=== PATIENT | male | born 1935 | race Caucasian/White ===

== ENCOUNTER → 2018-01-31 | Outpatient (CLI) | payer MEDICARE, OTHER ==
[2014-12-08 12:51] VITALS: BMI 26.9
[~2018-01-31] MED LIST: ASPI-663 PO; ASPI-715 PO; AZIT1PAC21 PO; CEPH500C24 PO; FENO67CA3 PO; FISH OIL1 CAP PO; HYDR25CA83 PO; IBUP1TAB PO; LEVO75TA73 PO; LIS10 PO; LISI-362 PO; LISI-374 PO; LOR5 PO; METXR500 PO; MULT1CAP41 PO; NAPR-1043 PO; PANT40TA65 PO; PER PO; PRED20TA6 PO; RANI-366 PO; SIMV-44 PO; STOOL SOFTNER; THYR60TA25 PO; VITA-280 PO; WARF5TAB23 PO
== END ==
LOC: LAB 14:03
PROVIDERS: ATTEND Anesthesiology
DX: Z01.812 Encounter for preprocedural laboratory examination (principal); M16.11 Unilateral primary osteoarthritis, right hip
CPT/HCPCS: 81001

== ENCOUNTER 2018-02-14 01:33 | Inpatient (IN) | payer MEDICARE, OTHER ==
[2018-02-13 14:46] LABS: INR 1.1
--- NOTE | 2018-02-13 23:19 | HISTORY AND PHYSICAL ---
DATE OF ADMISSION: February 14, 2018 IDENTIFICATION/CHIEF COMPLAINT Jama is an 82-year-old gentleman with the chief complaint of right hip pain. HISTORY OF PRESENT ILLNESS Patient has a longstanding history of hip arthritis, progressively painful and disabling, refractory to conservative care. Surgery is indicated to relieve symptoms after failure of nonoperative measures. PAST MEDICAL HISTORY * Generally excellent health. PAST SURGICAL HISTORY * Knee replacement by Dr. Kapadia. ALLERGIES He is allergic to PENICILLIN. CURRENT MEDICATIONS * Tramadol two pills every six hours as needed for pain. SOCIAL HISTORY Negative for tobacco and alcohol use. FAMILY HISTORY Notable for mother with a stroke. REVIEW OF SYSTEMS Negative. PHYSICAL EXAMINATION GENERAL: This is an elderly gentleman, appears stated age. HEENT: Normocephalic, atraumatic. NECK: Supple. LUNGS: Clear. HEART: Regular. ABDOMEN: Soft. ORTHOPEDIC: The patient's right hip is extremely stiff. It is painful at limits of flexion, rotation. Hip girdle strength is grossly normal. Skin envelope is intact. Calves nontender. Neurovascular function intact. LABORATORY DATA Radiographs demonstrate end-stage hip arthritis. ASSESSMENT * Right hip degenerative joint disease, progressively painful and debilitating, refractory to conservative care. PLAN Surgery is indicated to relieve symptoms after failure of nonoperative measures. The risks of the procedure include, but are not limited to , major medical or anesthetic complication, infection, neurovascular injury, blood transfusion, stiffness, scarring, fracture, tendon rupture, instability, implant loosening, migration, or failure, leg length discrepancy, need for additional surgery, and other unforeseen. He understands and wishes to proceed. Signed permit is placed in chart. No guarantees given or implied. [facility] SHOREL[facility]rent
[2018-02-14] VITALS (18 sets, daily range): BP systolic 100–170; BP diastolic 56–92
[~2018-02-14] VITALS: Ht 177.8 cm; Wt 77.2 kg
[~2018-02-14 01:33] MED LIST changes: +ACETAMINOPHEN 500 MG TAB PO ONE
[2018-02-14] MEDS ORDERED: ACETAMINOPHEN 500 MG TAB PO ONE (07:55)
[2018-02-14] MEDS ORDERED: ONDANSETRON 4 MG/2 ML VIAL ONE (08:11)
[2018-02-14] MEDS ORDERED: LIDOCAINE MPF 1% 5 ML VIAL ONE (08:11)
[2018-02-14] MEDS ORDERED: PROPOFOL EMUL(*) 10MG/ML 20 ML 20 ML ONE (08:11)
[2018-02-14] MEDS ORDERED: fentaNYL CITR 100 MCG/2 ML AMP ONE (08:12)
[2018-02-14] MEDS ORDERED: DEXAMETHASONE SOD 4 MG/ML VIAL ONE (08:12)
[2018-02-14] MEDS ORDERED: CLINDAMYCIN(*) 900 MG/NS 50 ML 50 ML IVPB ONE (09:15)
[2018-02-14] MEDS ORDERED: PREGABALIN 50 MG CAP PO ONE (09:15)
[2018-02-14] MEDS ORDERED: MIDAZOLAM 2 MG/2 ML VIAL IVP PRN (09:15)
[2018-02-14] MEDS ORDERED: FAMOTIDINE 20 MG TAB PO ONE (09:15)
[2018-02-14] MEDS ORDERED: LIDOCAINE/SOD BICARB 8.4% SYR ID ONE (09:15)
[2018-02-14] MEDS ORDERED: cloNIDine EPIDUR INJ 100MCG/ML 40 MCG, ROPIVACAINE 0.5% 20 ML VIAL 25 ML, EPINEPHrine H... INJ ONE (09:15)
[2018-02-14] MEDS ORDERED: PREGABALIN 25 MG CAP PO ONE (09:15)
[2018-02-14] MEDS ORDERED: CELECOXIB 200 MG CAP PO ONE (09:15)
[2018-02-14] MEDS ORDERED: NORMOSOL R SOLN(*) 1000 ML BAG 1,000 ML IV PRN ×2 (09:15→13:10)
[2018-02-14] MEDS ORDERED: TRANEXAMIC AC 1000 MG/10ML SDV 1,000 MG in DEXTROSE 5% 50 ML BAG 50 ML IV ONE (09:15)
[2018-02-14] MEDS ORDERED: NS(*) 0.9% 250 ML BAG 250 ML ONE (10:09)
[2018-02-14] MEDS ORDERED: PHENYLEPHRINE 10 MG/1 ML VIAL ONE ×2 (10:20→10:33)
[2018-02-14] MEDS ORDERED: GLYCOPYRROLATE 0.2MG/ML 1 ML INJ ONE (10:38)
[2018-02-14] MEDS ORDERED: DIAZEPAM 5 MG TAB PO PRN (13:10)
[2018-02-14] MEDS ORDERED: BISACODYL 10 MG SUPP PR PRN (13:10)
[2018-02-14] MEDS ORDERED: PROMETHAZINE 25 MG/ML 1 ML AMP IVP PRN (13:10)
[2018-02-14] MEDS ORDERED: diphenhydrAMINE 50 MG/ML VIAL IVP PRN (13:10)
[2018-02-14] MEDS ORDERED: MAGNESIUM HYDROXIDE* 30ML UDCP PO PRN (13:10)
[2018-02-14] MEDS ORDERED: diphenhydrAMINE 25 MG CAP PO PRN (13:10)
[2018-02-14] MEDS ORDERED: FLUSH 10 ML SYR IVP PRN (13:10)
[2018-02-14] MEDS ORDERED: ZOLPIDEM TARTRATE 5 MG TAB PO PRN (13:10)
[2018-02-14] MEDS ORDERED: BENZOCAINE/MENTHOL 1 EACH LOZG PO PRN (13:10)
[2018-02-14] MEDS ORDERED: ACETAMINOPHEN 325 MG TAB PO PRN (13:10)
--- NOTE | 2018-02-14 13:23 | RADIOLOGY IMAGING REPORT ---
FACILITY: [facility] - [place] PATIENT NAME: Joni Valdivia : 1935 MR: [id number] V: [id number] EXAM DATE: ORDERING PHYSICIAN: SON GARZA TECHNOLOGIST: Location: [facility] [place] Patient: Joni Valdivia : 1935 Visit/Account:[id number] Date of Sevice: 02/14/2018 Exam type: PELVIS History: RIGHT HIP REPLACEMENT Comparison: November 26, 2016. Findings: There is a right hip arthroplasty that appears in good anatomic alignment on this single AP view. So ft tissue gas and skin va project adjacent to this postoperative hip IMPRESSION: 1. As above Report Dictated By: Deanne Perez MD at 02/14/2018 1:19 PM Report E-Signed By: Deanne Perez MD at 02/14/2018 1:19 PM WSN:[id number]
[2018-02-14] MEDS ORDERED: AMLO2.5T74 PO (14:26)
[2018-02-14] MEDS ORDERED: TRAM-420 PO (14:26)
[2018-02-14] MEDS ORDERED: FURO20TA19 PO (14:26)
[2018-02-14] MEDS ORDERED: FENO134C5 PO (14:26)
[2018-02-14] MEDS ORDERED: ATR80PT PO (14:26)
--- NOTE | 2018-02-14 14:33 | Hospitalist Consultation ---
History of Present Illness Requesting Physician Dr. Hernandez Reason for Consult Medication Management Chief Complaint s/p right total hip replacement History of Present Illness He was admitted s/p right total hip replacement. It was reported the surgery went well and without complication. History Problems: (1) Dementia Status: Chronic (2) Carotid artery stenosis Status: Chronic (3) Hyperlipidemia Status: Chronic (4) Hypothyroid Status: Chronic (5) Hypertension Status: Acute Home Meds Active Scripts Pantoprazole Sodium (PANTOPRAZOLE SODIUM) 40 Mg Tablet., 40 MG PO QDAY, #30 TAB.SR 0 Refills Prov:NISHI COSME MD 12/25/16 Ranitidine Hcl (ZANTAC) 150 Mg Tablet, 150 MG PO BID, #10 TAB Prov:COLEMAN HUTCHINSON DO 06/03/16 Reported Medications Furosemide (LASIX) 20 Mg Tablet, 1 TAB PO DAILY, TAB 02/14/18 Atorvastatin (LIPITOR) 80 Mg Tab, 1 TAB PO QHS, TAB 02/14/18 Amlodipine Besylate (AMLODIPINE BESYLATE) 2.5 Mg Tablet, 1 TAB PO QDAY, #30 TAB 02/14/18 Fenofibrate,Micronized (FENOFIBRATE) 134 Mg Capsule, 134 MG PO QDAY, CAPSULE 02/14/18 Tramadol Hcl (TRAMADOL HCL) 50 Mg Tablet, 50-100 MG PO TID for PAIN, TAB 02/14/18 Levothyroxine Sodium (LEVOTHYROXINE SODIUM) 75 Mcg Tablet, 88 MCG PO DAILY, #30 06/03/16 Vitamin B Complex (B-100 COMPLEX) 1 Each Tablet, 1 EACH PO DAILY 12/07/14 Aspirin (Aspirin) 81 Mg Tablet., 81 MG PO DAILY 07/26/12 Discontinued Reported Medications Lisinopril (LISINOPRIL) 40 Mg Tablet, 40 MG PO DAILY, #30 06/03/16 Discontinued Scripts Hydroxyzine Pamoate (VISTARIL) 25 Mg Capsule, 25 MG PO Q6H for itching, #20 CAPSULE Prov:COLEMAN HUTCHINSON DO 06/03/16 Prednisone (PREDNISONE) 20 Mg Tablet, 20 MG PO BID, #10 TAB Prov:COLEMAN HUTCHINSON DO 06/03/16 Allergies: Coded Allergies: Penicillins (Verified Allergy, Intermediate, ITCHING, HIVES, 02/13/18) Hx Smoking: No Smoking Status: Never Smoker Exposure to Second Hand Smoke?: No Caffeine Intake: Coffee Caffeine/Cups Per Day: 3-4 Hx Alcohol Use: No Hx Substance Use Disorder: No Social Drug Use: Never History of IV Drug Use: No Review of Systems All Systems Reviewed/Normal: Yes, Except as Noted Exam Vital Signs Vital Signs Date Time Temp Pulse Resp B/P (MAP) Pulse Ox O2 Delivery O2 Flow Rate FiO2 02/14/18 13:10 98 Nasal Cannula 2.0 02/14/18 13:10 97.5 77 18 157/73 (101) General Appearance: No Acute Distress, Afebrile Cardiovascular: Regular Rate and Rhythm Respiratory: No Respiratory Distress, Clear to Auscultation Psych: Appropriate Mood & Affect Assessment and Plan Problems: (1) Status post total hip replacement, right Status: Acute Assessment & Plan: Followed by Dr. Hernandez. He will be on Aspirin 325mg daily for 30 days for DVT prophylaxis. (2) Hypertension Status: Acute Assessment & Plan: He is on chronic treatment with Amlodipine and Lasix. These medications were restarted with parameters. (3) Hyperlipidemia Status: Chronic Assessment & Plan: He is on chronic treatment with Atorvastatin and Fenofibrate. (4) Hypothyroid Status: Chronic Assessment & Plan: He is on chronic treatment with Levothyroxine. (5) Carotid artery stenosis Status: Chronic Assessment & Plan: Carotid endarterectomy performed on the Left in 2016. Right side shows occluded internal carotid. Venous Thromboembolism Antithrombotics Is Pt On Any Antithrombotics?: No LATA MERINOP February 14, 2018 14:33
[2018-02-14] MEDS: CELECOXIB 200 MG CAP PO SCH (17:07)
[2018-02-14] MEDS: CLINDAMYCIN(*) 900 MG/NS 50 ML 50 ML IVPB SCH (18:19)
--- NOTE | 2018-02-14 21:15 | OPERATIVE REPORT 1 ---
EVENT DATE: February 14, 2018 SURGEON: Francisco Hernandez MD ANESTHESIOLOGIST: Addy Beatty MD ANESTHESIA: General plus spinal. MACHINIST MECHANIC: TOBIAS Tubbs PREOPERATIVE DIAGNOSIS Right hip degenerative joint disease. POSTOPERATIVE DIAGNOSIS Right hip degenerative joint disease. PROCEDURE PERFORMED Right total hip arthroplasty. ESTIMATED BLOOD LOSS 200 mL DRAINS None. SPECIMENS None. COMPLICATIONS None apparent. IMPLANTS USED Livier system with a Trident PSL CHILD cluster acetabular shell 54, X3 zero- degree polyethylene liner in the shell, a SecurFit Max 132-degree size 10 stem, a Biolox Delta Ceramic C-taper femoral head, 36 mm, +0 standard. INDICATIONS Jama is an 82-year-old gentleman with end-stage arthritis and femoral head collapse refractory to conservative care. Surgery is indicated to relieve pain and improve function after failure of nonoperative measures. DESCRIPTION OF PROCEDURE Patient was taken to the operating room and placed supine on the operating table. General anesthesia was induced after a spinal block was administered by the anesthesiologist. Antibiotics and TXA are administered IV. Patient is positioned in left lateral decubitus on a well-padded pegboard. Pelvis secured in a vertical position. All bony prominences and superficial nerves are well padded. Right lower extremity is prepped and draped in the usual sterile fashion for orthopedic surgery. A small incision posterolateral approach is made and carried down through the skin and subcutaneous tissue to the deep fascia. Fascia was incised over the tip of the trochanter, extended distally in line with the femur, proximally in line with the charli fibers. Charli fibers are split bluntly. The interval between the abductor and external rotator is identified, and the abductor mechanism is protected with a blunt Hohmann. An L capsulotomy/tenotomy is made with the horizontal limb just above the piriformis, releasing the piriformis and capsule off the posterolateral femur. This is tagged with #2 Vicryl for later anatomic reattachment. The femoral head is dislocated. End-stage arthritic change is noted. A 1.5 cm neck cut is made consistent with preoperative templating. The femur is translocated anteriorly. Lola-acetabular retractors are placed with the tips securely down on bone to avoid injury to the critical neurovascular structures. Pulvinar and labrum are excised. A 44 mm reamer is used to medialize to the true medial wall of the acetabulum. It was expanded in 2 mm increments up to 54 where nice rim contact is obtained. The 55 is used to open the floor of the acetabulum. The surfaces are lavaged, and actual shell is impacted in approximately 15 degrees of anteversion and right degrees of lateral opening using the transverse acetabular ligament, internal bony landmarks, and extracorporeal guide to guide socket placement. Rock-solid fixation is achieved. No adjuvant fixation felt to be needed. The shell is lavaged, and the actual liner is locked into the shell. Attention is turned to femoral preparation. Superior neck is resected with a cookie cutter. Josette awl finds the canal. Tapered reaming is performed up to 10 where nice endosteal contact is obtained. Broaching starts with 8 and works up to 10. Reduction is tried off the 10 broach, and nice christian of limb length and stability are achievable. Broach is extracted. The actual stem is impacted and seats nicely at the same height. Trial reduction with various neck lengths are tried, and the standard is felt to be optimal. Wagner taper is lavaged and dried. The Biolox head is impacted onto the Wagner taper. Joint is reduced. The capsule and external rotators are reapproximated anatomically through drill holes in the posterolateral femur. The deep fascia is closed with #2 Ethibond, proximally with #2 Vicryl. The subcutaneous tissue is lavaged. Hemostasis is assured. Derm is closed with 3-0 Vicryl and the skin with surgical va. Xeroform and 4 x 4's applied in a dry, sterile dressing and a hip wrap. Patient rolled supine. Abduction pillow placed. He was awakened from anesthesia and taken to the recovery room in stable condition having tolerated the procedure well. Plan is for standard KAYE rehab protocol. [facility]
[2018-02-14] MEDS: ATORVASTATIN 40 MG TAB PO SCH (21:45)
[2018-02-15] VITALS: BP 113/55
[2018-02-15] MEDS: CLINDAMYCIN(*) 900 MG/NS 50 ML 50 ML IVPB SCH ×2 (01:35→09:27)
[2018-02-15 03:00] VITALS: BP 121/63
[2018-02-15] MEDS: LEVOTHYROXINE SOD 0.088 MG TAB PO SCH (05:33)
[2018-02-15] MEDS: APAP/HYDROCODONE 325/7.5 TAB PO PRN ×3 (05:34→21:46)
[2018-02-15 05:53] LABS: PLATELET COUNT, AUTOMATED 112 K/uL (150-450)
[2018-02-15 07:26] VITALS: BP 145/74
[2018-02-15] MEDS: FENOFIBRATE,MICRONIZED 134 MG CAPSULE PO SCH (09:00)
[2018-02-15] MEDS: CELECOXIB 200 MG CAP PO SCH ×2 (09:26→16:30)
[2018-02-15] MEDS: amLODIPine BESYL(*) 2.5 MG TAB PO SCH (09:26)
[2018-02-15] MEDS: FUROSEMIDE 20 MG TAB PO SCH (09:26)
[2018-02-15] MEDS: ASPIRIN 325 MG TAB PO SCH (09:26)
--- NOTE | 2018-02-15 11:05 | Hospitalist Progress Note ---
Subjective Progress Notes Subjective He has no concerns this morning. Patient Complains of: Cardiovascular: No: Chest Pain Respiratory: No: Shortness of Breath Physical Exam Vital Signs Date Time Temp Pulse Resp B/P (MAP) Pulse Ox O2 Delivery O2 Flow Rate FiO2 02/15/18 09:31 89 Room Air 02/15/18 07:26 98.4 58 16 145/74 (97) 2.0 General Appearance: Alert, Awake, No Acute Distress, Afebrile Neuro: No Gross deficits Cardiovascular: Regular Rate and Rhythm Respiratory: No Respiratory Distress, Clear to Auscultation Psych: Alert & Oriented X3, Appropriate Mood & Affect Result Diagram: 02/15/1840 02/15/18539 Assessment and Plan Problems: (1) Status post total hip replacement, right Status: Acute Assessment & Plan: Followed by Dr. Hernandez. He will be on Aspirin 325mg daily for 30 days for DVT prophylaxis. (2) Hypertension Status: Acute Assessment & Plan: He is on chronic treatment with Amlodipine and Lasix. These medications were restarted with parameters. (3) Hyperlipidemia Status: Chronic Assessment & Plan: He is on chronic treatment with Atorvastatin and Fenofibrate. (4) Hypothyroid Status: Chronic Assessment & Plan: He is on chronic treatment with Levothyroxine. (5) Carotid artery stenosis Status: Chronic Assessment & Plan: Carotid endarterectomy performed on the Left in 2015. Right side shows occluded internal carotid. Exam Sepsis Risk: No Definite Risk LATA MERINO INSTITUTION LIBRARIAN February 15, 2018 11:05
[2018-02-15 11:15] VITALS: BP 110/57
[2018-02-15 12:42] VITALS: Ht 177.8 cm; Wt 77.2 kg
[2018-02-15 16:10] VITALS: BP 125/57
[2018-02-15 19:44] VITALS: BP 126/63
[2018-02-15] MEDS: ATORVASTATIN 40 MG TAB PO SCH (20:54)
[2018-02-16] VITALS (7 sets, daily range): BP systolic 118–151; BP diastolic 57–70
[2018-02-16] MEDS: LEVOTHYROXINE SOD 0.088 MG TAB PO SCH (05:49)
[2018-02-16] MEDS: FUROSEMIDE 20 MG TAB PO SCH (08:54)
[2018-02-16] MEDS: amLODIPine BESYL(*) 2.5 MG TAB PO SCH (08:54)
[2018-02-16] MEDS: FENOFIBRATE,MICRONIZED 134 MG CAPSULE PO SCH (08:54)
[2018-02-16] MEDS: ASPIRIN 325 MG TAB PO SCH (08:54)
[2018-02-16] MEDS: CELECOXIB 200 MG CAP PO SCH ×2 (08:54→16:47)
--- NOTE | 2018-02-16 11:28 | Hospitalist Progress Note ---
Subjective Progress Notes Subjective He has no complaints this morning. Patient Complains of: Cardiovascular: No: Chest Pain Respiratory: No: Shortness of Breath Physical Exam Vital Signs Date Time Temp Pulse Resp B/P (MAP) Pulse Ox O2 Delivery O2 Flow Rate FiO2 02/16/18 08:57 Room Air 02/16/18 08:41 98.1 85 20 140/66 (90) 90 02/16/18 02:29 2.0 Intake and Output 02/17/18 06:59 Intake Total 200 ml Balance 200 ml Intake Oral 200 ml # Voids 2 General Appearance: Alert, Awake, No Acute Distress, Afebrile Neuro: No Gross deficits Cardiovascular: Regular Rate and Rhythm Respiratory: No Respiratory Distress, Clear to Auscultation GI: Soft and Non-Tender Psych: Alert & Oriented X3, Appropriate Mood & Affect Result Diagram: 02/15/1840 02/15/18 0540 Assessment and Plan Problems: (1) Status post total hip replacement, right Status: Acute Assessment & Plan: Followed by Dr. Hernandez. He will be on Aspirin 325mg daily for 30 days for DVT prophylaxis. (2) Hypertension Status: Acute Assessment & Plan: He is on chronic treatment with Amlodipine and Lasix. These medications were restarted with parameters. (3) Hyperlipidemia Status: Chronic Assessment & Plan: He is on chronic treatment with Atorvastatin and Fenofibrate. (4) Hypothyroid Status: Chronic Assessment & Plan: He is on chronic treatment with Levothyroxine. (5) Carotid artery stenosis Status: Chronic Assessment & Plan: Carotid endarterectomy performed on the Left in 2015. Right side shows occluded internal carotid. Exam Sepsis Risk: No Definite Risk LATA MERINO PATTERN MAKER February 16, 2018 11:28
[2018-02-16] MEDS: APAP/HYDROCODONE 325/7.5 TAB PO PRN (13:31)
[2018-02-16] MEDS: ATORVASTATIN 40 MG TAB PO SCH (21:49)
[2018-02-17] MEDS: APAP/HYDROCODONE 325/7.5 TAB PO PRN (03:06)
[2018-02-17 03:07] VITALS: BP 149/7
[2018-02-17] MEDS: LEVOTHYROXINE SOD 0.088 MG TAB PO SCH (06:12)
[2018-02-17 07:11] VITALS: BP 131/58
[2018-02-17] MEDS ORDERED: TAMS0.4C70 PO (08:11)
[2018-02-17] MEDS: FUROSEMIDE 20 MG TAB PO SCH (08:45)
[2018-02-17] MEDS: CELECOXIB 200 MG CAP PO SCH (08:45)
[2018-02-17] MEDS: amLODIPine BESYL(*) 2.5 MG TAB PO SCH (08:45)
[2018-02-17] MEDS: ASPIRIN 325 MG TAB PO SCH (08:45)
--- NOTE | 2018-02-17 09:03 | Hospitalist Progress Note ---
Subjective Progress Notes Subjective He has no complaints this morning. Patient Complains of: Cardiovascular: No: Chest Pain Respiratory: No: Shortness of Breath Physical Exam Vital Signs Date Time Temp Pulse Resp B/P (MAP) Pulse Ox O2 Delivery O2 Flow Rate FiO2 02/17/18 08:04 Nasal Cannula 02/17/18 07:11 70 16 131/58 (82) 93 02/16/18 23:13 97.9 02/16/18 02:29 2.0 Intake and Output 02/18/18 00:59 # Voids 1 General Appearance: Alert, Awake, No Acute Distress, Afebrile Neuro: No Gross deficits Cardiovascular: Regular Rate and Rhythm Respiratory: No Respiratory Distress, Clear to Auscultation GI: Soft and Non-Tender Psych: Alert & Oriented X3, Appropriate Mood & Affect Result Diagram: 02/15/1853902/15/18539 Assessment and Plan Problems: (1) Status post total hip replacement, right Status: Acute Assessment & Plan: Followed by Dr. Hernandez. He will be on Aspirin 325mg daily for 30 days for DVT prophylaxis. (2) Hypertension Status: Acute Assessment & Plan: He is on chronic treatment with Amlodipine and Lasix. (3) Hyperlipidemia Status: Chronic Assessment & Plan: He is on chronic treatment with Atorvastatin and Fenofibrate. (4) Hypothyroid Status: Chronic Assessment & Plan: He is on chronic treatment with Levothyroxine. (5) Carotid artery stenosis Status: Chronic Assessment & Plan: Carotid endarterectomy performed on the Left in 2015. Right side shows occluded internal carotid. Exam Sepsis Risk: No Definite Risk LATA MERINO February 17, 2018 09:03
== END 2018-02-17 10:15 | DRG 470 ==
LOC: OR 01:33 → MED 13:10
PROVIDERS: ADMIT Orthopaedic Surgery; ATTEND Orthopaedic Surgery
PROC: 0SR904Z Replacement of Right Hip Joint with Ceramic on Polyethylene Synthetic Substitute, Open Approach (ICD-10-PCS; principal; 2018-02-14 09:59)
DX: M16.11 Unilateral primary osteoarthritis, right hip (principal); I10 Essential (primary) hypertension; I65.29 Occlusion and stenosis of unspecified carotid artery; Z96.652 Presence of left artificial knee joint; Z88.0 Allergy status to penicillin; E78.5 Hyperlipidemia, unspecified; E03.9 Hypothyroidism, unspecified; F03.90 Unspecified dementia, unspecified severity, without behavioral disturbance, psychotic disturbance, mood disturbance, and anxiety
CPT/HCPCS: 36415; 72170; 82310; 82374; 82435; 82565; 82947; 84132; 84295; 84520; 85025; 85610; 86850; 86900; 86901; 97162; C1776; J0171; J0735; J1100; J1885; J2001; J2370; J2405; J2704; J2795; J3010; J3490; J7050; J7060

== ENCOUNTER 2018-02-17 10:15 | Inpatient (IN) | payer MEDICARE, OTHER ==
[2018-02-15 12:42] VITALS: Wt 78.0 kg
[~2018-02-17 10:15] MED LIST changes: -ACETAMINOPHEN 500 MG TAB PO ONE; +AMLO2.5T74 PO; +ATR80PT PO; +FENO134C5 PO; +FURO20TA19 PO; +TAMS0.4C70 PO; +TRAM-420 PO
[2018-02-17 10:25] VITALS: BP 125/70
[2018-02-17] MEDS ORDERED: MAGNESIUM HYDROXIDE* 30ML UDCP PO PRN (10:54)
[2018-02-17] MEDS ORDERED: BISACODYL 10 MG SUPP PR PRN (10:54)
[2018-02-17] MEDS ORDERED: ACETAMINOPHEN 325 MG TAB PO PRN (10:54)
[2018-02-17] MEDS ORDERED: diphenhydrAMINE 25 MG CAP PO PRN (10:56)
--- NOTE | 2018-02-17 11:46 | Consultant Pharmacy Review ---
[facility] Att[facility] Review Medication Review Do All Mecications have a Diag: Yes Beers Criteria Medication 2015 Anticholinergics exclude TCAs: Diphenhydramine Disease-Drug Interactions Insomnia: Diphenhydramine (Ordered for itching and insomnia) Other General Cautions Lexicomp Interaction Analysis A = No known interaction C = Monitor therapy X = Avoid combination B = No action needed D = Consider therapy modification Drugs in this analysis: Acetaminophen; Aspirin; Bisacodyl; CeleBREX; DiazePAM; DiphenhydrAMINE (Systemic); Lasix; Lipitor; Lofibra [DSC]; Lortab; Milk of Magnesia [OTC]; Norvasc; Synthroid * Drug-Drug Interactions D Aspirin CeleBREX (Nonsteroidal Anti-Inflammatory Agents (GALVAN-2 Selective)) Depends on Dose D Bisacodyl Milk of Magnesia [OTC] (Antacids) D CeleBREX (Nonsteroidal Anti-Inflammatory Agents) Lasix (Loop Diuretics) D DiazePAM (COLLETER Depressants) Lortab (HYDROcodone) D DiphenhydrAMINE (Systemic) (COLLETER Depressants) Lortab (HYDROcodone) D Milk of Magnesia [OTC] (Magnesium Salts) Synthroid (Levothyroxine) Depends on Route C Aspirin (Salicylates) Lasix (Loop Diuretics) C DiazePAM (COLLETER Depressants) DiphenhydrAMINE (Systemic) (COLLETER Depressants) C Lasix (Diuretics) Lortab (Opioid Analgesics) C Lipitor (HMG-CoA Reductase Inhibitors (Statins)) Lofibra [DSC] (Fenofibrate and Derivatives) C Milk of Magnesia [OTC] (Magnesium Salts) Norvasc (Calcium Channel Blockers) B Acetaminophen Lortab (Opioid Analgesics) B Aspirin (Salicylates) Milk of Magnesia [OTC] (Antacids) Depends on Duration B CeleBREX (Nonsteroidal Anti-Inflammatory Agents) Milk of Magnesia [OTC] ( Antacids) B CeleBREX (Nonsteroidal Anti-Inflammatory Agents) Norvasc (Calcium Channel Blockers) B DiazePAM Milk of Magnesia [OTC] (Antacids) B Lasix (Furosemide) Synthroid (Thyroid Products) Depends on Dose Pneumococcal Vaccine HX Pneumo Vac ([id number]): Yes (DATE UNK) Comments Regarding the Review Please monitor patient for falls due to multiple meds (benadryl, lortab, diazepam) that can cause drowsiness. Please note that patient has orders for lortab and tylenol so do not exceed 3 gm of Tylenol in 24 hours. AMRIT GA February 17, 2018 11:46
[2018-02-17 15:20] VITALS: BP 109/64
--- NOTE | 2018-02-17 15:56 | OT ECF NOTE ---
Type of Note: Initial Note Primary Medical Diagnosis: Right KAYE Occupational Therapy Evaluation Date: 02-17-18 SUBJECTIVE: Prior Hospitalization: 02-14-18 to 02-17-18 on [facility] surgical floor Prior Level of Function: Independent with all ADL's. Prior Living Status: Spouse Assist by family Community Services: Unknown Home Accessibility: Pt. not able to recall. Equipment Owned: Pt. not able to recall what DME he owns. Medical Complications/Past Medical History: Please refer to chart for details. Psychosocial Support: Supportive Pain Scale (0-10): 0/10 OBJECTIVE: Strength: WFL MMT: Right Left Shoulder Flexion [*] [*] Elbow Flexion [*] [*] Wrist Extension [*] [*] Eyelet Operator [*] [*] (5= normal, 4= good, 3= fair, 2= poor, 1= trace) ROM: Both upper extremities WFL Functional Transfer: Assistive Device: Front wheeled walker Gait belt Transfer Ability: CGA ADL: Upper body dressing: Assistive device: Upper body dressing ability: N/T Lower body dressing: Assistive device: Lower body dressing ability: N/T Toileting: Assistive device: Toileting ability: N/T Grooming/hygiene: Assistive device: Grooming ability: N/T Bathing: Assistive device: Bathing ability: N/T Standardized Assessment: Dhiraj Index of Activities of Daily Living- Pt. scored 13/20 on this Index upon evaluation on 02/17/18. ASSESSMENT: Pt. is a 82 year old male s/p R KAYE of Dr. Hernandez on 02-14-18. Pt. resides in [place], [place], with his spouse. Pt. was independent with all ADL activities prior to KAYE. Pt. requires continued rehab on F to increase independence with ADL. Problem List/Current Limitations: Pain Decreased activity juan diego Short Term Goals: 1.Pt. to perform toileting activities with Mod I. 2. Pt. to perform showering activities with SBA. 3. Pt. to perform dressing activities with SBA. 4. Pt. to perform g/h activities, standing sink front, with I. 5. Pt. to improve Dhiraj Index of ADL score by 2 points. Service Attendant Goals: Return home Patient Goals: Return home Rehabilitation Prognosis: Fair Barriers to Discharge: Memory deficits with hip precautions PLAN: The patient will benefit from skilled occupational therapy services 5 times per week for 2 weeks including: Ther ex ADL training Safety training Ther act IADL training Transfer training Adaptive equip training Bed mobility Thank you for this referral. If you have any questions, concerns, or comments about this report or plan, please contact me at . Nita Baig, OTR/L Occupational Therapist DINA
[2018-02-17] MEDS: CELECOXIB 200 MG CAP PO SCH (16:58)
[2018-02-17] MEDS: ATORVASTATIN 40 MG TAB PO SCH (19:39)
[2018-02-17] MEDS: APAP/HYDROCODONE 325/7.5 TAB PO PRN (19:39)
[2018-02-17] MEDS: DIAZEPAM 5 MG TAB PO PRN (20:18)
[2018-02-18] MEDS: LEVOTHYROXINE SOD 0.088 MG TAB PO SCH (06:34)
[2018-02-18 07:45] VITALS: BP 143/74
[2018-02-18] MEDS: FUROSEMIDE 20 MG TAB PO SCH (08:30)
[2018-02-18] MEDS: FENOFIBRATE,MICRONIZED 134 MG CAPSULE PO SCH (08:33)
[2018-02-18] MEDS: ASPIRIN 325 MG TAB PO SCH (08:35)
[2018-02-18] MEDS: CELECOXIB 200 MG CAP PO SCH ×2 (08:35→17:47)
[2018-02-18] MEDS: amLODIPine BESYL(*) 2.5 MG TAB PO SCH (08:35)
--- NOTE | 2018-02-18 11:28 | Medical Nutrition Therapy ---
Nutrition Anthropometrics Weight (Pounds): 170 BMI Calculated: 24.39 Aidan Nutrition Score: Adequate Aidan Nutrition Risk Score: 17 Dietary Referral Nutrition Risk Factors: Nutrition Risk Comment: Nutritional Diagnosis Nutritional Risk Acuity 3: Fair Appetite, OR & > 80 yrs Past Medical History: HX of HTN, Hypercholesterolemia, Hypothyroid Nutritional Acuity: 3-Mild Nutrition Diagnosis: Increased Nutrient Needs Nutrition Etiology: Physiological Causes Nutrition Problem/Etiology/Sym: Increased nutrient needs related to physiological causes as evidenced by s/p hip replacement Diet Type: Diet as Tolerated CHA/REG Nutrition Intervention: Cont diet as ordered, Encourage intake Drug: Diuretics Drug/Nutrition Recommendations: Check Serum K+ Nutrition Monitoring & Eval RD Patient Assessment Time: [address] Assessment Type: RD Assessment Patient Nutrition Acuity: 3-Mild Follow Up Date: February 21, 2018 Nutritional Comment: 02/18 Pt admitted to ECF unit for ongoing PT/OT following hip replacement surgery. Currently on CHA with intake of 50-100% of meals. Please obtain ht and wt for energy need calculation. Notable labs include low H/H, glc 116. Will cont to monitor and encourage intake. -BECKY SANTA February 18, 2018 11:11
[2018-02-18 15:30] VITALS: BP 123/70
[2018-02-18] MEDS: APAP/HYDROCODONE 325/7.5 TAB PO PRN (19:19)
[2018-02-18] MEDS: DIAZEPAM 5 MG TAB PO PRN (19:56)
[2018-02-18] MEDS: ATORVASTATIN 40 MG TAB PO SCH (20:51)
[2018-02-19] MEDS: APAP/HYDROCODONE 325/7.5 TAB PO PRN ×2 (01:30→20:10)
[2018-02-19] MEDS: LEVOTHYROXINE SOD 0.088 MG TAB PO SCH (06:24)
[2018-02-19 07:30] VITALS: BP 123/54
[2018-02-19] MEDS: ASPIRIN 325 MG TAB PO SCH (08:42)
[2018-02-19] MEDS: CELECOXIB 200 MG CAP PO SCH ×2 (08:42→17:27)
[2018-02-19] MEDS: FENOFIBRATE,MICRONIZED 134 MG CAPSULE PO SCH (08:43)
[2018-02-19] MEDS: amLODIPine BESYL(*) 2.5 MG TAB PO SCH (08:43)
[2018-02-19] MEDS: FUROSEMIDE 20 MG TAB PO SCH (08:43)
[2018-02-19 15:23] VITALS: BP 125/71
[2018-02-19] MEDS: DIAZEPAM 5 MG TAB PO PRN (20:10)
[2018-02-19] MEDS: ATORVASTATIN 40 MG TAB PO SCH (20:16)
[2018-02-20] MEDS: LEVOTHYROXINE SOD 0.088 MG TAB PO SCH (06:25)
[2018-02-20 08:30] VITALS: BP 120/60
[2018-02-20] MEDS: FUROSEMIDE 20 MG TAB PO SCH (08:56)
[2018-02-20] MEDS: FENOFIBRATE,MICRONIZED 134 MG CAPSULE PO SCH (08:56)
[2018-02-20] MEDS: ASPIRIN 325 MG TAB PO SCH (08:57)
[2018-02-20] MEDS: amLODIPine BESYL(*) 2.5 MG TAB PO SCH (08:57)
[2018-02-20] MEDS: CELECOXIB 200 MG CAP PO SCH ×2 (08:57→17:38)
[2018-02-20] MEDS: APAP/HYDROCODONE 325/7.5 TAB PO PRN ×2 (12:15→20:26)
[2018-02-20 16:20] VITALS: BP 120/70
[2018-02-20] MEDS: ATORVASTATIN 40 MG TAB PO SCH (20:25)
[2018-02-20] MEDS: DIAZEPAM 5 MG TAB PO PRN (20:26)
[2018-02-21] MEDS: APAP/HYDROCODONE 325/7.5 TAB PO PRN ×2 (03:31→20:21)
[2018-02-21] MEDS: LEVOTHYROXINE SOD 0.088 MG TAB PO SCH (06:27)
[2018-02-21 07:45] VITALS: BP 129/58
[2018-02-21 08:27] VITALS: BP 110/53
[2018-02-21] MEDS: FUROSEMIDE 20 MG TAB PO SCH (08:32)
[2018-02-21] MEDS: amLODIPine BESYL(*) 2.5 MG TAB PO SCH (08:32)
[2018-02-21] MEDS: FENOFIBRATE,MICRONIZED 134 MG CAPSULE PO SCH (08:33)
[2018-02-21] MEDS: CELECOXIB 200 MG CAP PO SCH ×2 (08:33→17:40)
[2018-02-21] MEDS: ASPIRIN 325 MG TAB PO SCH (08:33)
--- NOTE | 2018-02-21 12:45 | Medical Nutrition Therapy ---
Nutrition Anthropometrics Weight (Pounds): 172 Weight (Calculated Kilograms): 78.160 BMI Calculated: 24.39 Adian Nutrition Score: Adequate Aidan Nutrition Risk Score: 17 Dietary Referral Nutrition Risk Factors: Nutrition Risk Comment: Nutritional Diagnosis Nutritional Risk Acuity 3: Fair Appetite, OR & > 80 yrs Past Medical History: HX of HTN, Hypercholesterolemia, Hypothyroid Nutritional Acuity: 3-Mild Nutrition Diagnosis: Increased Nutrient Needs Nutrition Etiology: Physiological Causes Nutrition Problem/Etiology/Sym: Increased nutrient needs related to physiological causes as evidenced by s/p hip replacement Diet Type: Diet as Tolerated CHA/REG Nutrition Intervention: Cont diet as ordered, Encourage intake, Between meal supplement Drug: Diuretics Drug/Nutrition Recommendations: Check Serum K+ Diet Comment To RSA: OFFER NUTRITION SUPPLEMEMT Nutrition Monitoring & Eval RD Patient Assessment Time: [address] Assessment Type: RD Assessment Patient Nutrition Acuity: 3-Mild Follow Up Date: February 28, 2018 Nutritional Comment: 02/18 Pt admitted to ECF unit for ongoing PT/OT following hip replacement surgery. Currently on CHA with intake of 50-100% of meals. Please obtain ht and wt for energy need calculation. Notable labs include low H/H, glc 116. Will cont to monitor and encourage intake. -EK 02/21 Pt continues on CHA/REG diet with oral intake 0-50%. Offer nutrition supplement to help meet nutritional needs. There are no new lab values documented at this time. Contine to lacy pt progress and encourage intake. ROB LOPEZ February 21, 2018 12:37
--- NOTE | 2018-02-21 17:16 | PT ECF NOTE ---
Type of Note: Initial Note Primary Medical Diagnosis: R) KAYE Physical Therapy Evaluation Date: 02-17-18 SUBJECTIVE: Prior Hospitalization: 02-14-18 to 02-17-18 on [facility] surgical floor Prior Level of Function: Independent with all ADL's. Prior Living Status: Spouse; Assist by family (Pt noted to have dementia) Community Services: Unknown Home Accessibility: Pt. not able to recall. Equipment Owned: Pt. not able to recall what DME he owns. Medical Complications/Past Medical History: Please refer to chart for details. Psychosocial Support: Supportive Pain Scale (0-10): 0/10 OBJECTIVE: Strength: R) LE No formal MMT due to R) KAYE; L) LE WFL overall ROM: (please note any abnormalities) R) LE limited by KAYE precautions; L) LE WFL overall Sensation: (please note any abnormalities) No paresthesias reported Other Neuro findings: n/a Bed Mobility: Not addressed with initial eval Assistive device: Transfers: Verbal cues, SBA, CGA Assistive Device: Front wheeled walker Gait: Verbal cues, SBA, CGA Assistive device: Front wheeled walker Stairs: Not yet addressed Assistive device: Timed Up and Go (>12 seconds indicated increased risk for falls): 26 seconds with FWW and cues for KAYE precautions and safety during turns 10 meter walk test (0.6m/second cannot function independently): n/a Other Objective Measures: n/a ASSESSMENT: Pt demos decreased ability to recall KAYE precautions and will likely require 24 hr supervision upon d/c home to provide verbal cues for safety and SBA. Pt may benefit from additional longer-term rehab to optimize strength and balance while waiting until hip precautions are discontinued before attempting to discharge home. Problem List/Current Limitations: Decreased strength, Decreased ROM, Decreased balance, Poor safety awareness, Decreased problem solving, Confusion Short Term Goals: 1. Pt to be modified indep/verbal cues for bed mobility and supine to/ from sit transfers 2. Pt to be modified indep/verbal cues for sit to/from stand safely 3. Pt to juan [place] ambulation x 300' with least restrictive device 4. Pt to [place] up/down platform step x 2 with least restrictive device 5. Pt to recall KAYE precautions with habituation for safety Jail Goals: Pt to d/c to least restrictive environment with optimal assistance for safety if prior to KAYE precautions being released. Patient Goals: Return home with Rehabilitation Prognosis: Good Barriers for Discharge: Pt's level of safety awareness with regard to KAYE precautions and their application to ADL's. PLAN: The patient will benefit from skilled physical therapy services 5 times per week for 2 weeks including: Therapeutic Exercise Therapeutic Activities, Transfer Training, Gait Training, Stair Training, ADL's , Safety Training, Pt/Caregiver Training, Bed Mobility Thank you for this referral. If you have any questions, concerns, or comments about this report or plan, please contact me at . H. Mary Santos, PT, MPT [facility]
[2018-02-21 17:20] VITALS: BP 132/77
[2018-02-21] MEDS: ATORVASTATIN 40 MG TAB PO SCH (20:21)
[2018-02-22] MEDS: APAP/HYDROCODONE 325/7.5 TAB PO PRN ×2 (02:02→20:35)
[2018-02-22] MEDS: LEVOTHYROXINE SOD 0.088 MG TAB PO SCH (06:13)
[2018-02-22 08:03] VITALS: BP 132/55
--- NOTE | 2018-02-22 08:25 | HISTORY AND PHYSICAL ---
DATE OF ADMISSION: February 14, 2018 IDENTIFICATION/CHIEF COMPLAINT Jama is an 82-year-old gentleman with the chief complaint of right hip pain. HISTORY OF PRESENT ILLNESS Patient has a longstanding history of hip arthritis, progressively painful and disabling, refractory to conservative care. Surgery is indicated to relieve symptoms after failure of nonoperative measures. PAST MEDICAL HISTORY * Generally excellent health. PAST SURGICAL HISTORY * Knee replacement by Dr. Kapadia. ALLERGIES He is allergic to PENICILLIN. CURRENT MEDICATIONS * Tramadol two pills every six hours as needed for pain. SOCIAL HISTORY Negative for tobacco and alcohol use. FAMILY HISTORY Notable for mother with a stroke. REVIEW OF SYSTEMS Negative. PHYSICAL EXAMINATION GENERAL: This is an elderly gentleman, appears stated age. HEENT: Normocephalic, atraumatic. NECK: Supple. LUNGS: Clear. HEART: Regular. ABDOMEN: Soft. ORTHOPEDIC: The patient's right hip is extremely stiff. It is painful at limits of flexion, rotation. Hip girdle strength is grossly normal. Skin envelope is intact. Calves nontender. Neurovascular function intact. LABORATORY DATA Radiographs demonstrate end-stage hip arthritis. ASSESSMENT * Right hip degenerative joint disease, progressively painful and debilitating, refractory to conservative care. PLAN Surgery is indicated to relieve symptoms after failure of nonoperative measures. The risks of the procedure include, but are not limited to , major medical or anesthetic complication, infection, neurovascular injury, blood transfusion, stiffness, scarring, fracture, tendon rupture, instability, implant loosening, migration, or failure, leg length discrepancy, need for additional surgery, and other unforeseen. He understands and wishes to proceed. Signed permit is placed in chart. No guarantees given or implied. <Electronically signed by SON GARZA MD> D/ [id number] LOYD/ISHA CC: SON GARZA MD H&P ADDENDUM The above issues are resolving. Patient requires care home care and/or skilled rehabilitation. Patient is ready for transfer to Extended Care. Any change in condition is described below. MTDD
[2018-02-22 08:31] VITALS: BP 139/61
[2018-02-22] MEDS: FUROSEMIDE 20 MG TAB PO SCH (08:32)
[2018-02-22] MEDS: FENOFIBRATE,MICRONIZED 134 MG CAPSULE PO SCH (08:36)
[2018-02-22] MEDS: amLODIPine BESYL(*) 2.5 MG TAB PO SCH (08:37)
[2018-02-22] MEDS: CELECOXIB 200 MG CAP PO SCH ×2 (08:37→17:11)
[2018-02-22] MEDS: ASPIRIN 325 MG TAB PO SCH (08:37)
[2018-02-22] MEDS ORDERED: ASPI-757 PO (09:18)
--- NOTE | 2018-02-22 09:24 | Hospitalist Progress Note ---
Physical Exam Vital Signs Date Time Temp Pulse Resp B/P (MAP) Pulse Ox O2 Delivery O2 Flow Rate FiO2 02/22/18 08:31 139/61 (87) 02/22/18 08:03 98.0 64 12 95 Room Air Assessment and Plan Problems: (1) Status post total hip replacement, right Status: Acute Assessment & Plan: Followed by Dr. Hernandez. He will be on Aspirin 325mg daily for 30 days for DVT prophylaxis. 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 (2) Hypertension Status: Acute Assessment & Plan: He was continued on chronic treatment with Amlodipine and Lasix. (3) Hyperlipidemia Status: Chronic Assessment & Plan: He was continued on chronic treatment with Atorvastatin and Fenofibrate. (4) Hypothyroid Status: Chronic Assessment & Plan: He was continued on chronic treatment with Levothyroxine. (5) Carotid artery stenosis Status: Chronic Assessment & Plan: Carotid endarterectomy performed on the Left in 2015. Right side shows occluded internal carotid. Time Spent on Plan of Care: < 30 min Copies to: ALTAGRACIA CASAS MD Problem Qualifiers (1) Hypertension: Hypertension type: essential hypertension Qualified Codes: I10 - Essential ( primary) hypertension (2) Carotid artery stenosis: Laterality: bilateral Qualified Codes: I65.23 - Occlusion and stenosis of bilateral carotid arteries JAMIE BOB MD February 22, 2018 09:24
--- NOTE | 2018-02-22 09:35 | Hospitalist Progress Note ---
Subjective Progress Notes Subjective The patient is doing well. No new complaints. Physical Exam Vital Signs Date Time Temp Pulse Resp B/P (MAP) Pulse Ox O2 Delivery O2 Flow Rate FiO2 02/22/18 08:31 139/61 (87) 02/22/18 08:03 98.0 64 12 95 Room Air General Appearance: Alert, Awake, No Acute Distress, Afebrile Neuro: No Gross deficits Cardiovascular: Regular Rate and Rhythm (With FRENCH.) Respiratory: Clear to Auscultation GI: Soft and Non-Tender Extremities: Warm, Perfused, Other (No significant edema bilaterally.) Integumentary: Other (Surgical wound bandaged.) Psych: Appropriate Mood & Affect Assessment and Plan Problems: (1) Status post total hip replacement, right Status: Acute Assessment & Plan: Followed by Dr. Hernandez. He will be on Aspirin 325mg daily for 30 days for DVT prophylaxis. The patient will be transferred to [facility] care ([facility]) to complete his rehabilitation. (2) Hypertension Status: Acute Assessment & Plan: He was continued on chronic treatment with Amlodipine and Lasix. (3) Hyperlipidemia Status: Chronic Assessment & Plan: He was continued on chronic treatment with Atorvastatin and Fenofibrate. (4) Hypothyroid Status: Chronic Assessment & Plan: He was continued on chronic treatment with Levothyroxine. (5) Carotid artery stenosis Status: Chronic Assessment & Plan: Carotid endarterectomy performed on the Left in 2015. Right side shows occluded internal carotid. Time Spent on Plan of Care: < 30 min Copies to: ALTAGRACIA CASAS MD Problem Qualifiers (1) Hypertension: Hypertension type: essential hypertension Qualified Codes: I10 - Essential ( primary) hypertension (2) Carotid artery stenosis: Laterality: bilateral Qualified Codes: I65.23 - Occlusion and stenosis of bilateral carotid arteries JAMIE BOB MD February 22, 2018 09:35
[2018-02-22 15:55] VITALS: BP 117/64
[2018-02-22] MEDS: ATORVASTATIN 40 MG TAB PO SCH (20:34)
[2018-02-23] MEDS: APAP/HYDROCODONE 325/7.5 TAB PO PRN (01:17)
[2018-02-23] MEDS: LEVOTHYROXINE SOD 0.088 MG TAB PO SCH (05:58)
[2018-02-23 08:00] VITALS: BP 123/64
[2018-02-23] MEDS: FUROSEMIDE 20 MG TAB PO SCH (08:36)
[2018-02-23] MEDS: amLODIPine BESYL(*) 2.5 MG TAB PO SCH (08:36)
[2018-02-23] MEDS: FENOFIBRATE,MICRONIZED 134 MG CAPSULE PO SCH (08:36)
[2018-02-23] MEDS: ASPIRIN 325 MG TAB PO SCH (08:37)
[2018-02-23] MEDS: CELECOXIB 200 MG CAP PO SCH (08:37)
--- NOTE | 2018-02-23 10:55 | OT ECF NOTE ---
Type of Note: Discharge Note Primary Medical Diagnosis: Right KAYE Occupational Therapy Evaluation Date: 02-17-18 SUBJECTIVE: Prior Hospitalization: 02-14-18 to 02-17-18 on [facility] surgical floor Prior Level of Function: Independent with all ADL's. Prior Living Status: Spouse Assist by family Community Services: Unknown Home Accessibility: Pt. not able to recall. Equipment Owned: Pt. not able to recall what DME he owns. Medical Complications/Past Medical History: Please refer to chart for details. 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 Operator [*] [*] (5= normal, 4= good, 3= fair, 2= poor, 1= trace) ROM: Both upper extremities, WFL Functional Transfer: Assistive Device: Front wheeled walker, Gait belt Transfer Ability: SBA with v/c's ADL: Upper body dressing: Assistive device: None Upper body dressing ability: SBA with v/c's Lower body dressing: Assistive device: Mat Cutter/Sock aide Lower body dressing ability: SBA with v/c's Toileting: Assistive device: Raised toilet seat Toileting ability: SBA with v/c's Grooming/hygiene: Assistive device: Standing Grooming ability: SBA with v/c's Bathing: Assistive device: Bathing ability: N/T Standardized Assessment: Dhiraj Index of Activities of Daily Living- Pt. scored 13/20 on this Index upon evaluation on 02/17/18. 14/20 at discharge (02/23/18). ASSESSMENT: Pt. is a 82 year old male s/p R KAYE of Dr. Hernandez on 02-14-18. Pt. resides in [place], [place], with his spouse. Pt. was independent with all ADL activities prior to KAYE. He has demonstrated limited carryover and recall of posterior hip precautions. Currently, pt requires 24/7 supervision and v/c's to adhere to posterior hip precautions with all ADLs/mobility. Pt and spouse agreeable to transition to [facility] for continued skilled rehab/short term placement has spouse is unable to care for pt at current level of function and safety if of concern. Problem List/Current Limitations: Pain Decreased activity tolerance Short Term Goals: 1.Pt. to perform toileting activities with Mod I. Not met. 2. Pt. to perform showering activities with SBA. Not met. 3. Pt. to perform dressing activities with SBA. Goal met. 4. Pt. to perform g/h activities, standing sink front, with I. Not met. 5. Pt. to improve Dhiraj Index of ADL score by 2 points. Not met. 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 Thank you for this referral. If you have any questions, concerns, or comments about this report or plan, please contact me at . Lida Salas MS, OTR/L Occupational Therapist [facility]
--- NOTE | 2018-02-23 11:39 | PT ECF NOTE ---
Type of Note: Discharge Summary Primary Medical Diagnosis: R) KAYE Physical Therapy Discharge Date: 02-23-18 SUBJECTIVE: Prior Hospitalization: 02-14-18 to 02-17-18 on [facility] surgical floor Prior Level of Function: Jovan with use of RW Prior Living Status: Spouse; Assist by spouse(Pt noted to have dementia) Community Services: Unknown Home Accessibility: 2 platform steps to enter home Equipment Owned: RW Medical Complications/Past Medical History: Please refer to chart for details. Psychosocial Support: Supportive Pain Scale (0-10): 0/10 OBJECTIVE: Strength: R) LE No formal MMT due to R) KAYE; L) LE WFL overall ROM: R) LE limited by KAYE precautions; L) LE WFL overall Sensation: No paresthesias reported Other Neuro findings: n/a Bed Mobility: Pt up in chair with all PT visits, bed mobility not yet addressed Transfers: SBA with RW Gait: SBA x 450' with RW Stairs: CGA to asc/desc platform stair with RW Timed Up and Go (>12 seconds indicated increased risk for falls): 26 seconds with FWW and cues for KAYE precautions and safety during turns (assessed on eval ) ASSESSMENT: Pt has made progress with functional mobility but continues to require verbal cues throughout sessions for adherence to posterior hip precautions. The patient's spouse was admitted to [facility] med/surg during pt's ECF stay. The patient and spouse have elected to have the patient transfer to [facility] for continued fdc rehab and possible short term placement to allow the patient's to fully recover prior to the patient's return home. Problem List/Current Limitations: Decreased strength, Decreased ROM, Decreased balance, Poor safety awareness, Decreased problem solving, Confusion Short Term Goals: (ongoing) 1. Pt to be modified indep/verbal cues for bed mobility and supine to/ from sit transfers 2. Pt to be modified indep/verbal cues for sit to/from stand safely 3. Pt to [place] ambulation x 300' with least restrictive device 4. Pt to [place] up/down platform step x 2 with least restrictive device 5. Pt to recall KAYE precautions with habituation for safety Detention Goals: Pt to d/c to least restrictive environment with optimal assistance for safety if prior to KAYE precautions being released. 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 Thank you for this referral. If you have any questions, concerns, or comments about this report or plan, please contact me at . Monalisa Piper, PT, DPT [facility]
--- NOTE | 2018-02-28 17:12 | DISCHARGE SUMMARY ---
REASON FOR ADMISSION Patient status post hip arthroplasty. Admitted to the extended care facility for ongoing safely and mobility training prior to discharge home. HOSPITAL COURSE Patient does well while on the extended care facility and makes satisfactory progress, cleared by Therapy for safety and mobility. At the time of discharge the wound condition is benign. He is comfortable on p.o. pain medication. He is voiding and stooling normally. DISPOSITION Discharged home. FOLLOWUP With Dr. Hernandez in one week in the outpatient clinic. DISCHARGE MEDICATIONS 1. Preop home meds in the usual dose. 2. Hydrocodone for pain. 3. Aspirin 325 mg p.o. q.day times one month for postop DVT prophylaxis. DIET Ad manuelito. CONDITION ON DISCHARGE Stable. DISCHARGE INSTRUCTIONS Outpatient therapy per protocol. Okay to shower. No submersion o f the wound. Call immediately for fevers, chills, wound problems, uncontrolled pain or other concerns. Posterior hip precautions. Use of assistive devices. MTDD
== END 2018-02-23 14:25 | disposition home or self-care (01) | DRG 561 ==
LOC: ECF 10:15
PROVIDERS: ADMIT Family Medicine; ATTEND Family Medicine
DX: Z47.1 Aftercare following joint replacement surgery (principal); I65.23 Occlusion and stenosis of bilateral carotid arteries; I10 Essential (primary) hypertension; Z96.641 Presence of right artificial hip joint; Z96.652 Presence of left artificial knee joint; E78.5 Hyperlipidemia, unspecified; E03.9 Hypothyroidism, unspecified
CPT/HCPCS: 97161; 97165